=== PATIENT | male | born 1965 | race Hispanic/Latino ===

== ENCOUNTER 2025-06-26 09:34 | Emergency (ER) | payer SELFPAY ==
--- NOTE | ~2025-06-26 | XR_ITS ---
EXAMINATION: XR humerus LT, 06/26/2025 10:00 [facility] HISTORY: fracture; FALL ON MONDAY COMPARISON: No comparisons available. Findings: There is a slightly displaced fracture of the supracondylar humerus with intra- articular extension. No significant degenerative changes. Soft tissues unremarkable. Impression: Supracondylar fracture. Reviewed, dictated and finalized at location P. FILLER Impression: Supracondylar fracture.
--- NOTE | ~2025-06-26 | CT_ITS ---
EXAMINATION: XR elbow LT 2V, CT elbow LT wo con DATE: 06/26/2025 11:02 INDICATION: Left elbow fracture TECHNIQUE: 1. Anteroposterior, two oblique and lateral views of the left elbow were obtained. 2. High resolution computed tomography (CT) of the left elbow was performed without intravenous contrast. Additional sagittal and coronal reconstructions were performed. Automated exposure control and iterative reconstruction technique were employed. The dose-length product was 580.53 mGy-cm. COMPARISON: None FINDINGS: Y shaped supracondylar fracture of the distal left humerus. There is a 12 mm anterior displacement, 5 mm proximal migration and 30 degrees posterior angulation medial condylar fragment relative to the humeral diaphysis. The lateral condylar fragment remains minimally displaced. There is only minimal di splacement between the medial and lateral condylar fragments aside from the 30 degree posterior rotation of the medial condylar fragment relative to the lateral condylar fragment. Intra-articular fracture plane extends to the central groove of the trochlear articular surface with approximately 2 mm maximal step- off. There is widening of the posterior superior margin of the fracture plane where there is proximal 7 mm separation of the fracture margins at the posterior aspect of the articular surface. No other fractures identified. Mild osteoarthritis at the left elbow. Minimal elbow joint effusion. Soft tissue swelling with subcutaneous edema posterior to the elbow and proximal to mid left forearm. Likely incidental 2 mm metallic foreign body in the tissues superficial subdermal soft tissues at the volar aspect of the mid left forearm. IMPRESSION: 1. Comminuted intra-articular condylar fracture of the distal left humerus possible for 12 mm anterior displacement and 30 degree posterior rotation to condylar fragment relative to the distal humerus and the medial condylar fragment. Reviewed, dictated and finalized at location A. ALS ASSISTANT IMPRESSION: 1. Comminuted intra-articular condylar fracture of the distal left humerus poss ible for 12 mm anterior displacement and 30 degree posterior rotation to condyl ar fragment relative to the distal humerus and the medial condylar fragment.
[2025-06-26 09:47] VITALS: BP 130/66; PULSE 84; RESP 16; TEMP 36.4; O2SAT 99
[2025-06-26 10:38] VITALS: BP 123/67; PULSE 73; RESP 15; O2SAT 98
--- NOTE | 2025-06-26 12:07 | ED.UPPEXIN ---
HPI - Extremity Injury (Upper) General Chief Complaint: Extremity Injury, Upper Stated Complaint: CONFIRMED FX L HUMERUS, NEEDS ORTHO Time Seen by Provider: 06/26/25 10:22 History of Present Illness HPI narrative: Patient fell and hurt his left elbow a few days ago, had x-ray showing a elbow fracture, placed in splint and sling and told to follow-up with orthopedist, he was having trouble getting an appointment with 1 so came in here. Related Data Allergies Allergy/AdvReac Type Severity Reaction Status Date / Time No Known Allergies Allergy Verified 06/26/25 09:39 Review of Systems Review of Systems: All systems reviewed & are unremarkable except as noted in HPI and below Exam Narrative: EXAMINATION OF ORGAN SYSTEMS/BODY AREAS: Constitutional: Vital signs per nursing GENERAL:[No acute distress, non-toxic appearing.] HEAD: Normal with no signs of head trauma. EYES: EOMI, conjunctiva normal ENT: Hearing grossly intact LUNGS: Nonlabored breathing. HEART: [Regular rate and rhythm], normal radial pulse and good cap refill left hand ABD: [Soft], [nontender to palpation] EXT: Elbow in splint/sling SKIN: [No rashes or lesions.] NEURO: [Alert. No gross focal sensory or strength deficits.] PSYCH: Normal affect Course Vital Signs Vital signs: Vital Signs Temperature 97.6 F 06/26/25 09:47 Pulse Rate 84 06/26/25 09:47 Respiratory Rate 16 06/26/25 09:47 Blood Pressure 130/66 06/26/25 09:47 Pulse Oximetry 99 06/26/25 09:47 Temperature 97.6 F 06/26/25 09:47 Pulse Rate 84 06/26/25 12:15 Respiratory Rate 16 06/26/25 12:15 Blood Pressure 138/76 06/26/25 12:15 Pulse Oximetry 97 06/26/25 12:15 [facility] MDM Narrative Medical decision making narrative: Patient presents here with known elbow fracture, I discussed this with Ortho here who requested CT, on review unfortunately he does feel patient would benefit from trauma orthopedist, I called [facility] and spoke with Dr. Costa, orthopedic Trauma, who is happy to see patient in clinic for planned surgery, images pushed to [facility] and disc provided for patient. He is agreeable to this plan for follow-up at [facility]. Return precautions provided Differential Diagnosis Differential Diagnosis: Elbow fracture, known Imaging Data Radiologist's impression: ITS Impressions Humerus X-Ray 06/26/25 10:07 Impression: Supracondylar fracture. Elbow CT 06/26/25 11:08 IMPRESSION: 1. Comminuted intra-articular condylar fracture of the distal left humerus possible for 12 mm anterior displacement and 30 degree posterior rotation to condylar fragment relative to the distal humerus and the medial condylar fragment. Elbow X-Ray 06/26/25 11:08 IMPRESSION: 1. Comminuted intra-articular condylar fracture of the distal left humerus possible for 12 mm anterior displacement and 30 degree posterior rotation to condylar fragment relative to the distal humerus and the medial condylar fragment. Discharge Plan Discharge Clinical Impression: Elbow fracture, left Patient Disposition: Home Condition: Stable Instructions: Elbow Fracture (ED) Additional Instructions: [facility] will reach out to you to schedule appointment for surgery planning. If they don't call you first, you can reach them at [phone] to make an appointment. You can always return to the ER for any further issues. Patient Language: Czech Prescriptions: New acetaminophen [Tylenol Extra Strength] 500 mg tablet 1,000 mg PO Q6H PRN (Reason: pain) Qty: 50 0RF methocarbamol 750 mg tablet 750 mg PO TID PRN (Reason: muscle spasm) Qty: 30 0RF oxycodone 5 mg capsule 5 mg PO Q6H PRN (Reason: pain) Qty: 14 0RF Follow-up/Referrals: PHYSICIAN,BRUISE TRIMMER [Primary Care Provider, Internal Medicine]
[2025-06-26 12:15] VITALS: BP 138/76; PULSE 84; RESP 16; O2SAT 97
== END 2025-06-26 12:38 | disposition home or self-care (01) ==
PROVIDERS: Emergency Provider Emergency Medicine
DX: S42.422A Displaced comminuted supracondylar fracture without intercondylar fracture of left humerus, initial encounter for closed fracture (principal); X58.XXXA Exposure to other specified factors, initial encounter
CPT/HCPCS: 73060; 73070; 73200; 99284